=== PATIENT | male | born 1960 | race Caucasian/White ===

== ENCOUNTER 2017-06-15 12:31 | Observation (INO) | payer BC ==
[2017-06-15] VITALS (7 sets, daily range): BP systolic 115–134; BP diastolic 63–95; PULSE 60–74; RESP 12–18; Ht 170.2 cm; Wt 74.0 kg
[~2017-06-15] VITALS: Ht 170.2 cm; Wt 74.0 kg
[2017-06-15] MEDS ORDERED: ALFU10TA2 PO (13:08)
[2017-06-15] MEDS ORDERED: NEBI10TA2 PO (13:10)
[2017-06-15] MEDS ORDERED: GABA100C14 PO (13:10)
[2017-06-15] MEDS ORDERED: ATOR40TA68 PO (13:10)
[2017-06-15] MEDS ORDERED: CEFAZOLIN 2 GM/50 ML (PMX) 50 ML IVPB SCH (14:30)
[2017-06-15] MEDS ORDERED: LACTATED RINGER'S 1L BAG IV* SCH (14:30)
--- NOTE | 2017-06-15 15:04 | CONS ---
Date/Time of Note Date/Time of Note DATE: 06/15/17 TIME: 14:56 Assessment/Plan Assessment/Plan Problems: (1) Pre-op evaluation Status: Acute Comment: At this time I find Mr. Espinoza be an acceptable surgical candidate concur with your plans proceed with surgery. He is at average surgical risk as compared to his age-matched peers and should do well using standard and routine anesthesia precautions. The modified Kraft's risk classification he is at average surgical risk. It is my impression that he should proceed with surgery. (2) Hyperlipidemia Status: Chronic Comment: Please continue with statin therapy without change Qualifiers: Qualified Code: E78.00 - Pure hypercholesterolemia (3) Essential hypertension Status: Chronic Comment: Continue with a beta-jersey especially in the surgical timeframe (4) BPH (benign prostatic hyperplasia) Status: Chronic Comment: Continue with treatment. Please note that the drug use this is not on her formulary he would substitute the alfuzosin with tamsulosin Qualifiers: Qualified Code: N40.1 - Benign prostatic hyperplasia with urinary frequency (5) Lumbar disc disease with radiculopathy Status: Acute Comment: For surgical relief today, I recommend proceed Consultation Date/Type/Reason Admit Date/Time June 15, 2017 Date of Consultation: Jun 15, 2017 Type of Consultation: Internal medicine-preop Reason for Consultation Preoperative medical clearance Referring Provider: RHIANNA PRINCE MD Hx of Present Illness Charming 57-year-old [place] gentleman brought in electively for lumbar spinal surgery for acute rupture of a right L4-5 disc with neurologic compromise including muscular/motor compromise. We are asked to see him in stat preoperative medical consultation. Constitutional: no complaints Eyes: no complaints ENT: no complaints Respiratory: no complaints Cardiovascular: no complaints Gastrointestinal: no complaints Genitourinary: no complaints Musculoskeletal: no complaints Skin: no complaints Neurologic: no complaints Endocrine: no complaints Lymphatic: no complaints Psychological: nl mood/affect, no complaints Immunologic: no complaints Past Medical History Benign prostatic hypertrophy; hyperlipidemia; essential hypertension; hyperuricemia with history of renal stone 1; lumbar disc disease with right- sided sciatica; usual childhood diseases; history of varicella Occasions; atorvastatin 40 mg once a day, nebivolol 10 mg once a day, alfuzosin 10 mg nightly, gabapentin 300 3 times daily Medical History: high cholesterol, hypertension Past Surgical History 1) status post removal of forehead lipoma, 2) status post right inguinal hernia repair 3 KATINA (status post left inguinal hernia repair 4) status post tonsillectomy Family History Significant Family History: heart disease, diabetes, hypertension, other ( Positive migraine syndrome; positive colon cancer; positive prostate cancer.) Social History Alcohol Use: rarely Smoking Status: Never smoker Drug Use: none Other Social History Born in [place] and raised there until the age of 61 and then grew up in the [facility] bachelors degree with a experience and lives with a spouse of 32 years works in property management Exam/Review of Systems Vital Signs Vitals Vital Signs Date Time Temp Pulse Resp B/P Pulse Ox O2 Delivery O2 Flow Rate FiO2 06/15/17 14:35 98.3 61 16 115/75 96 Room Air Exam Constitutional: alert, oriented Psych: nl mood/affect, no complaints Head: atraumatic, normocephalic Eyes: EOMI, PERRL, nl conjunctiva, nl lids, nl sclera ENMT: mucosa pink and moist, nl external ears & nose, nl lips & teeth, nl nasal mucosa & septum Neck: non-tender, supple Respiratory: clear to auscultation, normal air movement Cardiovascular: nl pulses, regular rate and rhythm Gastrointestinal: nl liver, spleen, non-tender, soft Musculoskeletal: nl extremities to inspection, nl gait and stance Extremities: normal pulses Neurological: W[employer] SPORTS MANAGER II-XII intact, nl mental status, nl speech, nl strength Skin: nl turgor, rash or lesions Lymph: nl lymph nodes Medications Medications Current Medications Cefazolin Sodium/ Dextrose (Ancef 2 Gm/50 ml (Pmx)) 50 ml @ 100 mls/hr OC IVPB ; Start 06/15/17 at 14:30; Stop 06/15/17 at 19:00 Lactated Ringer's (Lr) 1,000 ml OC IV* ; Start 06/15/17 at 14:30; Stop 06/15/17 at 19:00 Copies To: CC: RHIANNA PRINCE MD, JOSHUA A MD Jun 15, 2017 15:04
--- NOTE | 2017-06-15 15:45 | HPN ---
Date/Time of Note Date/Time of Note DATE: 06/15/17 TIME: 15:45 Interval H&P Admission Note Pt. seen H&P reviewed: No system changes MERISSA PARHAM PA-C Jun 15, 2017 15:45
[2017-06-15] MEDS ORDERED: ONDANSETRON 4 MG INJ IV PRN ×2 (16:00→20:00)
[2017-06-15] MEDS ORDERED: DIPHENHYDRAMINE 50 MG INJ IV PRN ×2 (16:00→20:00)
[2017-06-15] MEDS ORDERED: NALOXONE (0.4 MG/ML) INJ IV PRN (16:00)
[2017-06-15] MEDS ORDERED: HYDROCODONE/APAP (10/325) TAB PO PRN (16:00)
[2017-06-15] MEDS ORDERED: [UNRECOGNIZED DRUG - REMARK] XX SCH (16:00)
[2017-06-15] MEDS ORDERED: AL HYDROX/MG HYDROX/SIMETH 30 ML CUP PO PRN (16:00)
[2017-06-15] MEDS ORDERED: ZOLPIDEM 5 MG TAB PO PRN (16:00)
[2017-06-15] MEDS ORDERED: BISACODYL 10 MG SUPP PR PRN (16:00)
[2017-06-15] MEDS ORDERED: CEPASTAT LOZENGE MT PRN (16:00)
[2017-06-15] MEDS ORDERED: ACETAMINOPHEN 325 MG TAB PO PRN (16:00)
[2017-06-15] MEDS ORDERED: HYDROmorphONE 1 MG/ML SYG IV STA (18:35)
[2017-06-15] MEDS ORDERED: SURGIFOAM POWDER 1 GM KIT ONE (18:50)
[2017-06-15] MEDS ORDERED: SODIUM CL BACTERIOSTATIC 30 ML INJ ONE (18:51)
[2017-06-15] MEDS ORDERED: BUPIVACAINE 0.5%/EPI (SDV) 10 ML INJ ONE (18:51)
[2017-06-15] MEDS ORDERED: GELATIN SIZE 100 SPONGE ONE (18:52)
[2017-06-15] MEDS ORDERED: THROMBIN 5000 UNIT VIAL ONE (19:24)
[2017-06-15] MEDS ORDERED: CA CHLORIDE 10% 10 ML SYRINGE ONE (19:24)
[2017-06-15] MEDS ORDERED: PROPOFOL 20 ML ONE (19:45)
[2017-06-15] MEDS ORDERED: GLYCOPYRROLATE 0.4 MG INJ ONE ×2 (19:46→21:43)
[2017-06-15] MEDS ORDERED: LIDOCAINE 2% (SDV) 5 ML INJ ONE (19:46)
[2017-06-15] MEDS ORDERED: ROCURONIUM 50 MG INJ ONE ×2 (19:46→21:42)
[2017-06-15] MEDS ORDERED: SUCCINYLCHOLINE CHLORIDE 100 MG/5 ML SYG IV ONE (19:46)
[2017-06-15] MEDS ORDERED: MEPERIDINE 100 MG INJ ONE (19:46)
[2017-06-15] MEDS ORDERED: hydrALAzine 20 MG INJ IV PRN (20:00)
[2017-06-15] MEDS ORDERED: MEPERIDINE 25 MG INJ IV PRN (20:00)
[2017-06-15] MEDS ORDERED: OXYCODONE/ACETAMINOPHEN (5/325) TAB PO PRN ×2 (20:00)
[2017-06-15] MEDS ORDERED: LABETALOL HCL 20MG INJ IV PRN (20:00)
[2017-06-15] MEDS ORDERED: HYDROmorphONE (0.2 MG/ML) 10ML SYG IV PRN ×3 (20:00)
[2017-06-15] MEDS ORDERED: FENTAnyl 50 MCG/ML VIAL IV PRN ×3 (20:00)
[2017-06-15] MEDS ORDERED: MIDAZOLAM 1 MG/ML 2 ML INJ IV PRN (20:00)
[2017-06-15] MEDS ORDERED: METOCLOPRAMIDE 10 MG INJ IV PRN (20:00)
[2017-06-15] MEDS ORDERED: EPHEDrine SULFATE 50 MG/5 ML SYG IV PRN (20:00)
[2017-06-15] MEDS: CEFAZOLIN 1 GM/50 ML (PMX) 50 ML IVPB SCH ×2 (20:17→23:54)
[2017-06-15] MEDS: THROMBIN 5000 UNIT VIAL ONE ×2 (20:29→20:48)
[2017-06-15] MEDS ORDERED: POLYMYXIN/BACITRACIN 1L IRRIG ONE (21:01)
[2017-06-15] MEDS ORDERED: ONDANSETRON 4 MG INJ ONE (21:42)
[2017-06-15] MEDS ORDERED: CEFAZOLIN 1 GM INJ ONE (21:42)
[2017-06-15] MEDS ORDERED: BUPIVACAINE 0.25% (MPF) 30 ML INJ ONE (21:45)
[2017-06-15] MEDS ORDERED: NEOSTIGMINE 3 MG/3 ML SYRINGE ONE (21:46)
--- NOTE | 2017-06-15 22:14 | SIPON ---
Date/Time of Note Date/Time of Note DATE: 06/15/17 TIME: 22:13 Operative Report Preoperative Diagnosis L4-5 HNP Postoperative Diagnosis L4-5 HNP Operation/Procedure Performed discectomy Surgeon see signature line commercial loan assistant: MERISSA PARHAM PA-C Anesthesia Type: general Estimated Blood Loss: 10 - 50 ml's Transfusion Required: no Specimens disk Grafts/Implants: none Complications: no RHIANNA PRINCE MD Jun 15, 2017 22:14
[2017-06-15] MEDS: DOCUSATE SODIUM 100 MG CAP PO SCH (23:00)
--- NOTE | 2017-06-15 23:17 | OPR ---
DATE OF OPERATION: 06/15/2017 PREOPERATIVE DIAGNOSIS: Right L4-L5 disc extrusion with inferior migration, with radiculopathy. POSTOPERATIVE DIAGNOSIS: Right L4-L5 disc extrusion with inferior migration with radiculopathy. OPERATION PERFORMED: 1. Right L4-L5 hemilaminotomy, partial medial facetectomy, and foraminotomy. 2. Right L4-L5 lumbar microdiskectomy. 3. Use of C-arm flash with interpretation without radiologist present. 4. Use of operative microscope. 5. Intraoperative neuromonitoring (1.5 hours). PRIMARY SURGEON: Michael Santacruz MD HALVER MACHINE OPERATOR: Makenzie Ledezma PA-C customer service assistant was required in order to retract the neurovascular elements. FINDINGS: Neuro monitoring throughout the case revealed right L4 amplitude down 60 percent, right L5 amplitude down 80 percent. At the end of the case, nerve signals returned to normal. The patient had a large extruded fragment, which was inferiorly migrated, causing significant nerve root compression. ESTIMATED BLOOD LOSS: Less than 30 cc. DRAINS: None. SPECIMENS: Discs. COMPLICATIONS DURING THE PROCEDURE: None. ANESTHESIOLOGIST: Dr. Carrillo. ANESTHESIA: General. INDICATION FOR PROCEDURE: This is a 57-year-old gentleman with right lumbosacral radiculopathy and weakness, in the setting of a large disc extrusion. The disc extrusion increased in size within the course of several weeks, causing further neurological deficits. He has failed nonoperative measures. Therefore, I recommended proceeding with the above-mentioned surgery. Preoperatively discussed risks, benefits, and alternatives. He understood and wished to proceed. OPERATIVE PROCEDURE: Patient was identified in the preoperative holding area, given antibiotics in the operating room, where he was successfully placed under general anesthesia. Neuro monitoring leads were placed. Sequential compression devices were applied. Neuro monitoring was utilized during the procedure for 1.15 hours to include SSEP, MEP, and EMG. This was performed by [employer]. Start time was 8:30 p.m. Closure time was 10 p.m. Patient was placed on the operating room table in the prone position over bolsters. All bony prominences were padded. The back was prepped and draped in the usual sterile fashion. Using a sterile fluoroscope, I identified the incision site. I anesthetized the skin with Marcaine and epinephrine. An incision was then made over the L4-L5 level. I incised the dorsal fascia, subperiosteally dissected the Ml and Ml lamina. Margie retractor was placed. Kerrison was placed under what was felt to be the Ml lamina, and repeat lateral films obtained to confirm the correct levels. Microscope was brought in, and a right-sided hemilaminotomy was performed at the Ml level. I then performed a medial facetectomy. I then had to deroof the superior portion of the Ml lamina, given that the extruded fragment was down distal. I was then able to retract and mobilize the nerve root, and I identified the extruded fragment. I was able to remove the fragment in 1 large piece. I then identified the hole in the annulus, through which I placed my pituitary rongeurs and removed multiple free fragments. I then felt the floor of the canal. There was no longer any nerve root compression. At this point, all nerve signals returned to normal. I irrigated the disc space and the wound. Hemostasis was achieved with bipolar cautery and Surgifoam. Valsalva maneuver was performed, and there was no leak of CSF. I then injected PPP with thrombin over the dura for hemostatic purposes. Retractor was removed, and I closed the deep fascia with number 1 Vicryl stitch. I injected plain Marcaine. I then closed the subcutaneous tissue with 2-0 Vicryl stitch. Microscope was taken off the field, and 4-0 Monocryl closure was then performed. Dermabond and sterile dressing was then applied. The patient was then awakened from anesthesia, and taken to recovery room in stable condition. Lap, sponge, and instrument counts were correct x2. There were no apparent complications during the procedure. Patient will be admitted to [facility] for routine postoperative care to include pain control, pneumatic tourniquets, antibiotics and physical therapy. Dictated By: Michael Santacruz MD /tyler/brett /Document#: [id number] LOR
[2017-06-15] MEDS: D5W-0.45 NACL + KCL 20 MEQ 1,000 ML IV SCH (23:55)
[2017-06-16] VITALS: BP 121/70; PULSE 62
[2017-06-16 00:20] VITALS: BP 121/65; PULSE 58
[2017-06-16] MEDS: D5W-0.45 NACL + KCL 20 MEQ 1,000 ML IV SCH ×2 (01:45→11:45)
[2017-06-16 02:35] VITALS: BP 123/75; RESP 18
[2017-06-16] MEDS: HYDROmorphONE 1 MG/ML SYG IV PRN ×2 (05:13→09:17)
[2017-06-16] MEDS ORDERED: KETOROLAC 30 MG INJ IV STA (07:18)
[2017-06-16 08:03] VITALS: BP 108/74; RESP 19
[2017-06-16] MEDS ORDERED: KETOROLAC 30 MG INJ ONE (08:08)
[2017-06-16] MEDS: CEFAZOLIN 1 GM/50 ML (PMX) 50 ML IVPB SCH (08:10)
[2017-06-16] MEDS: DOCUSATE SODIUM 100 MG CAP PO SCH (08:10)
[2017-06-16] MEDS: CYCLOBENZAPRINE 10 MG TAB PO PRN ×2 (08:10→14:54)
--- NOTE | 2017-06-16 08:42 | CONS ---
Date/Time of Note Date/Time of Note DATE: 06/16/17 TIME: 08:39 Assessment/Plan Assessment/Plan Chief Complaint/Hosp Course Garcia 57-year-old [place]ian gentleman brought in electively for lumbar spinal surgery for acute rupture of a right L4-5 disc with neurologic compromise including muscular/motor compromise. We are asked to see him in stat preoperative medical consultation. Problems: (1) Status post lumbar laminectomy Onset Date: ~ 06/15/2017 Status: Acute Comment: Postoperatively he is having pain at the surgical incision site. He also notes some degree of reflux and burping. He will proceed with physical therapy. In addition as GI prophylaxis and will be given Gaviscon and pantoprazole. (2) Lumbar disc disease with radiculopathy Status: Acute Comment: Improved postop (3) BPH (benign prostatic hyperplasia) Status: Chronic Comment: Continue medications orders written Qualifiers: Lower urinary tract symptom presence: symptoms present Lower urinary tract symptom detail: urinary frequency Qualified Code: N40.1 - Benign prostatic hyperplasia with urinary frequency (4) Essential hypertension Status: Chronic Comment: Stable continue medications orders written (5) Hyperlipidemia Status: Chronic Comment: Stable, continue medications orders written Qualifiers: Hyperlipidemia type: pure hypercholesterolemia Qualified Code: E78.00 - Pure hypercholesterolemia Consultation Date/Type/Reason Admit Date/Time Jun 15, 2017 at 23:33 Initial Consult Date 06/15/17 Type of Consultation: Internal medicine-preop Reason for Consultation Hypertension; hyperlipidemia Referring Provider: RHIANNA PRINCE MD 24 HR Interval Summary Free Text/Dictation She reports she is having a significant amount of pain at the back at the incision site. He however reports that his right leg symptoms are significantly improved versus preop Constitutional: no complaints Detailed Summary Respiratory: no complaints Cardiovascular: no complaints Gastrointestinal: no complaints Exam/Review of Systems Vital Signs Vitals Vital Signs Date Time Temp Pulse Resp B/P Pulse Ox O2 Delivery O2 Flow Rate FiO2 06/16/17 08:03 97.2 65 19 108/74 98 06/16/17 00:20 Room Air 06/15/17 22:31 2.0 Intake and Output 06/15/17 06/15/17 06/16/17 15:00 23:00 07:00 Intake Total 300 ml Output Total 30 ml Balance 270 ml Exam Constitutional: alert, oriented Respiratory: clear to auscultation, normal air movement Cardiovascular: nl pulses, regular rate and rhythm Gastrointestinal: nl liver, spleen, non-tender, soft Extremities: normal pulses, other (No cord no tenderness) Neurological: [employer]PER[employer]IN[employer]CE SERVICES II-XII intact, nl mental status, nl speech, nl strength Medications Medications Current Medications Potassium Chloride/Dextrose/ Sod Cl (D5-1/2ns + KCl 20 Meq) 1,000 ml @ 100 mls/ hr Q10H IV Last administered on 06/15/17 23:55; Admin Dose 100 MLS/HR; Start 06/15/17 at 15:45 Acetaminophen/ Hydrocodone Bitart ([place] (10/325)) 1 tab Q4H PRN PO PAIN LEVEL 1-5 Last administered on 06/16/17 06:45; Admin Dose 1 TAB; Start 06/15/17 at 16 :00 Acetaminophen/ Hydrocodone Bitart ([place] (10/325)) 2 tab Q4H PRN PO PAIN LEVEL 6-10; Start 06/15/17 at 16:00 Hydromorphone HCl (Dilaudid) 0.2 mg Q1H PRN IV BREAKTHROUGH PAIN Last administered on 06/16/17 05:13; Admin Dose 0.2 MG; Start 06/15/17 at 16:00 Ondansetron HCl (Zofran Inj) 4 mg Q6H PRN IV NAUSEA AND/OR VOMITING; Start at 16:00 Bisacodyl (Dulcolax Supp) 10 mg DAILY PRN MA CONSTIPATION; Start 06/15/17 at 16 :00 Docusate Sodium (Colace) 100 mg BID PO Last administered on 06/16/17 08:10; Admin Dose 100 MG; Start 06/15/17 at 21:00 Al Hydrox/Mg Hydrox/Simethicone (Mag-Al Plus) 15 ml Q6H PRN PO CONSTIPATION/ DYSPEPSIA; Start 06/15/17 at 16:00 Acetaminophen (Tylenol Tab) 650 mg Q4H PRN PO BURK OR TEMP GREATER THAN 101.3F; Start 06/15/17 at 16:00 Cyclobenzaprine HCl (Flexeril) 10 mg TID PRN PO MUSCLE SPASMS Last administered on 06/16/17 08:10; Admin Dose 10 MG; Start 06/15/17 at 16:00 Phenol (Cepastat Lozenge) 1 lozenge PRN PRN MT SORE THROAT; Start 06/15/17 at 16:00 Diphenhydramine HCl (Benadryl) 25 mg Q6H PRN IV ITCHING; Start 06/15/17 at 16: 00 Naloxone HCl (Narcan) 0.2 mg Q2M PRN IV RR 8 BREATHS/MIN OR LESS; Start at 16:00 Al Hydroxide/Mg Trisilicate (Gaviscon) 1 tab Q3 PRN PO HEARTBURN; Start at 09:00; Status UNV Alfuzosin HCl (Uroxatral) 10 mg DAILY PO ; Start 06/16/17 at 09:00; Status UNV Atorvastatin Calcium (Lipitor) 40 mg QHS PO ; Start 06/16/17 at 21:00; Status UNV Gabapentin (Neurontin) 100 mg TID PO ; Start 06/16/17 at 09:00; Status UNV Miscellaneous Medication (Bystolic) 10 mg DAILY PO ; Start 06/16/17 at 09:00; Status UNV REBECA MANRIQUEZ MD Jun 16, 2017 08:42
[2017-06-16] MEDS ORDERED: NEBIVOLOL 5 MG TAB PO SCH (09:00)
[2017-06-16] MEDS ORDERED: ALFUZOSIN (SR) 10 MG TAB PO SCH (09:00)
[2017-06-16] MEDS ORDERED: PANTOPRAZOLE (EC) 40 MG TAB PO ONE ×2 (09:00→09:11)
[2017-06-16] MEDS ORDERED: GABAPENTIN 100 MG CAP ONE (09:11)
[2017-06-16] MEDS: GABAPENTIN 100 MG CAP PO SCH ×2 (09:16→14:54)
[2017-06-16] MEDS ORDERED: AL HYDROX/MG TRISILICATE TAB PO PRN (10:00)
--- NOTE | 2017-06-16 11:30 | PN ---
Date/Time of Note Date/Time of Note DATE: 06/16/17 TIME: 11:29 Assessment/Plan Lines/Catheters IV Catheter Type (from Nrsg): Peripheral IV Garza in Place (from Nrsg): No Assessment/Plan Assessment/Plan doing well. cont PT and pain control. will assess in a few hours for possible d/c Subjective 24 Hr Interval Summary decreased right leg pain, c/o mild back pain Exam/Review of Systems Vital Signs Vitals Vital Signs Date Time Temp Pulse Resp B/P Pulse Ox O2 Delivery O2 Flow Rate FiO2 06/16/17 08:03 97.2 65 19 108/74 98 06/16/17 00:20 Room Air 06/15/17 22:31 2.0 Intake and Output 06/15/17 06/15/17 06/16/17 15:00 23:00 07:00 Intake Total 300 ml Output Total 30 ml Balance 270 ml Exam Free Text/Dictation mild right leg foot drop RHIANNA PRINCE MD Jun 16, 2017 11:30
[2017-06-16] MEDS: HYDROCODONE/APAP (10/325) TAB PO PRN ×2 (12:10→19:21)
--- NOTE | 2017-06-16 12:17 | RADRPT ---
PROCEDURE: Intraoperative fluoroscopy. CLINICAL INDICATION: Intraoperative fluoroscopy. COMPARISON: None relevant listed. TECHNIQUE: Intraoperative fluoroscopy of the lumbar spine was performed. Fluoroscopy time: 10.1 seconds # Series / Images: 4 FINDINGS: Intraoperative fluoroscopy was provided for surgical planning and support purposes. Surgical clip is seen over the L4-L5 level. IMPRESSION: Intraoperative fluoroscopy was provided for surgical planning and support purposes. RPTAT: PP Imtiaz Trotter Physician Date Time Electronically viewed and signed by Imtiaz Trotter Physician on 06/16/2017 12:17 LG/
[2017-06-16 12:34] VITALS: BP 127/78; PULSE 68; RESP 16
--- NOTE | 2017-06-16 18:22 | DS ---
Date/Time of Note Date/Time of Note DATE: 06/16/17 TIME: 18:21 Discharge Summary Admission/Discharge Info Admit Date/Time Jun 15, 2017 at 23:33 Discharge Date/Time 06/16 Discharge Diagnosis s/p discectomy Patient Condition: Good Procedures discectomy Hospital Course admitted after discectomy. post op did well stable for d/c Home Meds Reported Medications Gabapentin* (Gabapentin*) 100 Mg Capsule, 100 MG PO TID, #90 CAP 06/15/17 Atorvastatin* (Atorvastatin*) 40 Mg Tablet, 40 MG PO QHS, #30 TAB 06/15/17 Nebivolol Hcl* (Bystolic*) 10 Mg Tablet, 10 MG PO DAILY, #30 TAB 06/15/17 Alfuzosin Hcl* (Alfuzosin Hcl*) 10 Mg Tab.er.24h, 10 MG PO DAILY, #30 TAB.SA 06/15/17 Primary Care Provider Not On Staff Doctor RHIANNA PRINCE MD Jun 16, 2017 18:22
[2017-06-16] MEDS ORDERED: ATORVASTATIN 40 MG TAB PO SCH (21:00)
[2017-06-17] MEDS ORDERED: PANTOPRAZOLE (EC) 40 MG TAB PO SCH (06:00)
== END 2017-06-16 20:00 | disposition home or self-care (01) ==
LOC: SDS 12:31 → MS1 23:33 → INTOOBSV 23:33
PROVIDERS: ADMIT Specialist; ATTEND Specialist
DX: M51.16 Intervertebral disc disorders with radiculopathy, lumbar region (principal); I10 Essential (primary) hypertension; E78.5 Hyperlipidemia, unspecified; N40.0 Benign prostatic hyperplasia without lower urinary tract symptoms
CPT/HCPCS: 63030; 72020; 86999; 88304; 97116; 97161; 97530; G0378; J0690; J1170; J1885; J2175; J2405; J2710; J3480; J7999